=== PATIENT | female | born 1975 | race Caucasian/White ===

== ENCOUNTER 2017-04-11 16:32 | Emergency (ER) | payer MEDICAID ==
[2017-04-11 17:56] LABS: BASOPHIL % 0.3 % (0-2); PLATELET COUNT 259 x10^3mcL (130-400); RED CELL DISTRIBUTION WIDTH 12.6 % (11.5-14.5)
[2017-04-11 18:18] LABS: T4(THYROXINE) 7.8 ug/dL (4.7-13.3)
[2017-04-11 19:38] VITALS: BP 121/75
== END 2017-04-11 19:38 | disposition home or self-care (01) ==
LOC: ED 16:32
PROVIDERS: Emergency Medicine
DX: N83.201 Unspecified ovarian cyst, right side (principal); R03.0 Elevated blood-pressure reading, without diagnosis of hypertension
CPT/HCPCS: 36415